=== PATIENT | female | born 1965 | race Caucasian/White ===

== ENCOUNTER 2024-05-04 08:27 | Inpatient (IN) | payer MEDICAID, SELFPAY ==
[2024-05-04] VITALS (13 sets, daily range): BP systolic 93–122; BP diastolic 46–80; PULSE 72–108; RESP 16–25; TEMP 36.4–37.6; O2SAT 88–94; BMI 32.5; BMI 31.9
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
[2024-05-04 09:49] LABS: Basophils # (Auto) 0.1 Thou/mm3 (0.0-0.2); Basophils % (Auto) 1 % (0-2.5); Eosinophils # (Auto) 0.2 Thou/mm3 (0.0-0.5); Eosinophils % (Auto) 1 % (0-10); Hematocrit 42.9 % (36.0-46.0); Hemoglobin 13.6 g/dL (12.0-16.0); Immature Granulocytes % (Auto) 1 % (0-0); Immature Granulocytes Auto 0.11 Thou/mm3 (0.00-0.00); Lymphocytes # (Auto) 2.3 Thou/mm3 (1.0-4.8); Lymphocytes % (Auto) 12 % (10-50); Mean Corpuscular HGB Conc 31.7 g/dl (31.0-37.0); Mean Corpuscular Hemoglobin 28.9 pg (25.0-35.0); Mean Corpuscular Volume 91 fL (80-100); Monocytes # (Auto) 2.2 Thou/mm3 (0.0-0.8); Monocytes % (Auto) 11 % (0-12); Neutrophils # (Auto) 14.9 Thou/mm3 (1.8-7.7); Neutrophils % (Auto) 75 % (37-80); Nucleated Red Blood Cell % 0 /100 WBC (0); Platelet Count 308 Thou/mm3 (140-440); RDW Standard Deviation 56.1 fL (36.4-46.3); White Blood Count 19.9 Thou/mm3 (3.6-11.0)
[2024-05-04] MEDS: ALBUTEROL/IPRATROPIUM (Duoneb) RT SOL 3 ML NEBU INH ×4 (09:52→22:54)
[2024-05-04 10:15] LABS: Alanine Aminotransferase 48 U/L (10-49); Albumin/Globulin Ratio 1.2 (1.2-2.2); Alkaline Phosphatase 111 U/L (46-116); Anion Gap 9 (7-16); Aspartate Amino Transferase 46 U/L (0-34); BUN/Creatinine Ratio 24 Ratio (12-20); Bilirubin,Total 0.7 mg/dL (0.3-1.2); Blood Urea Nitrogen 26 mg/dL (9-23); Calcium 8.8 mg/dL (8.3-10.6); Calcium (Corrected) 8.8 mg/dL (8.5-10.1); Carbon Dioxide 23.6 mMol/L (20.0-31.0); Chloride 105 mMol/L (98-107); Creatinine (Component) 1.1 mg/dL (0.6-1.3); Estimated Creatinine Clearance 68.4 mL/min (>60); Globulin 3.3 gm/dL (2.3-3.5); Glucose 169 mg/dL (74-106); Osmolality,Calculated 284 (275-295); Potassium 4.3 mMol/L (3.4-5.1); Sodium 138 mMol/L (136-145); Total Protein 7.3 gm/dL (5.7-8.2); eGFR 58 See Note
[2024-05-04] MEDS: predniSONE 20 MG TABLET 60 MG PO (10:15)
--- NOTE | 2024-05-04 10:52 | XR_ITS ---
Examination: AP chest single view Technique one AP portable upright chest single view Exam date and time: May 04, 2024 1103 hours Comparison September 22, 2023 INDICATIONS: Shortness of breath beginning 2 days ago. FINDINGS: Diffuse left lung pneumonia Mild enlargement cardiac contour Moderate vascular congestion mild or pneumonia right lung IMPRESSION: Bilateral pneumonia, significant left lung
[2024-05-04 11:12] LABS: Band Neutrophils (Manual) 2 % (0-6); Basophils (Manual) 1 % (0-2); Eosinophils (Manual) 4 % (0-4); Lymphocytes (Manual) 7 % (20-44); Monocytes (Manual) 8 % (2-9); Neutrophils (Manual) 78 % (50-70)
[2024-05-04] MEDS: cefTRIAXone/D5w 1gm IV premix 50 ML IV (11:14)
[2024-05-04] MEDS: AZITHROMYCIN 250 MG TABLET 500 MG PO (11:14)
[2024-05-04 12:08] LABS: Lactate (Lactic Acid) 1.5 mMol/L (0.4-2.0)
[2024-05-04 12:59] LABS: Procalcitonin 0.69 ng/ml (0.0-0.49)
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
[2024-05-04 15:20] LABS: B-Type Natriuretic Peptide 83 pg/mL (0-100)
[2024-05-04] MEDS: Vancomycin Inj 2,000 MG in SODIUM CHLORIDE 0.9% 500 ML 500 ML 150 MG IV (15:44)
[2024-05-04] MEDS: GABAPENTIN 300 MG CAPSULE 600 MG PO ×2 (15:44→21:27)
[2024-05-04] MEDS: PIPER/TAZO 3.375 GM 50 ML IV ×2 (15:45→21:27)
[2024-05-04 15:47] LABS: Glucose Estimated Average 123 mg/dL (80-131); Hemoglobin A1C 5.9 % Hgb (4.8-6.0)
--- NOTE | 2024-05-04 17:11 | PC.CC ---
Pt Briana Baeza is a 59 yr old female, admitted to hospitalist services for PNA. PRINTING PRESS MACHINE OPERATOR CC met with pt at bedside to complete initial assessment. At time of encounter pt is noted to be alert and oriented. Pt expressed understanding admission orders. Pt able to confirm demographic information. 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 Pt identifies her son Scott [phone] as surrogate DM. At baseline pt is bed bound with support to transition to wheel chair. Pt is max assist with ADLs. Pt reports prior to admission she was using PRN O2 at [facility]. In ED pt is on 2L NC. Pt is not diabetic and is not on dialysis. Pt is followed by Dr. Dill for primary care. At time of D/c pt will return to [facility]. Pt will likely need authorization to return and will likely need transport.
[2024-05-04] MEDS: HEPARIN SOD INJ 5000 UNIT/ML VIAL SC (21:26)
[2024-05-04] MEDS: SERTRALINE HCL 25 MG TABLET 125 MG PO (21:27)
[2024-05-04] MEDS: ARIPiprazole 5 MG TABLET PO (21:27)
[2024-05-05] VITALS (15 sets, daily range): BP systolic 112–142; BP diastolic 51–94; PULSE 63–86; RESP 2–21; TEMP 36.1–37.1; O2SAT 90–96; BMI 32.1
[2024-05-05 00:39] LABS: Influenza A Ag Negative; Influenza B Ag Negative; Strep A Rapid Negative (Negative)
[2024-05-05] MEDS: ALBUTEROL/IPRATROPIUM (Duoneb) RT SOL 3 ML NEBU INH ×6 (03:35→22:55)
[2024-05-05] MEDS: GABAPENTIN 300 MG CAPSULE 600 MG PO ×3 (05:07→21:18)
[2024-05-05] MEDS: LEVOTHYROXINE SODIUM 25 MCG TABLET 75 MCG PO (05:07)
[2024-05-05] MEDS: PIPER/TAZO 3.375 GM 50 ML IV (05:08)
[2024-05-05 06:01] LABS: Basophils # (Auto) 0.1 Thou/mm3 (0.0-0.2); Basophils % (Auto) 0 % (0-2.5); Eosinophils # (Auto) 0.1 Thou/mm3 (0.0-0.5); Eosinophils % (Auto) 1 % (0-10); Hematocrit 40.8 % (36.0-46.0); Hemoglobin 13.1 g/dL (12.0-16.0); Immature Granulocytes % (Auto) 1 % (0-0); Immature Granulocytes Auto 0.11 Thou/mm3 (0.00-0.00); Lymphocytes # (Auto) 3.5 Thou/mm3 (1.0-4.8); Lymphocytes % (Auto) 21 % (10-50); Mean Corpuscular HGB Conc 32.1 g/dl (31.0-37.0); Mean Corpuscular Hemoglobin 29.1 pg (25.0-35.0); Mean Corpuscular Volume 91 fL (80-100); Monocytes # (Auto) 1.9 Thou/mm3 (0.0-0.8); Monocytes % (Auto) 12 % (0-12); Neutrophils % (Auto) 66 % (37-80); Nucleated Red Blood Cell % 0 /100 WBC (0); Platelet Count 311 Thou/mm3 (140-440); RDW Standard Deviation 55.3 fL (36.4-46.3); White Blood Count 16.7 Thou/mm3 (3.6-11.0)
[2024-05-05 06:17] LABS: Partial Thromboplastin Time 31.6 Seconds (22.0-36.0)
[2024-05-05 06:55] LABS: Alanine Aminotransferase 38 U/L (10-49); Albumin, Serum 3.7 gm/dL (3.4-4.8); Albumin/Globulin Ratio 1.2 (1.2-2.2); Alkaline Phosphatase 125 U/L (46-116); Anion Gap 6 (7-16); Aspartate Amino Transferase 27 U/L (0-34); BUN/Creatinine Ratio 26 Ratio (12-20); Bilirubin,Total 0.3 mg/dL (0.3-1.2); Blood Urea Nitrogen 23 mg/dL (9-23); Calcium 8.9 mg/dL (8.3-10.6); Calcium (Corrected) 9.1 mg/dL (8.5-10.1); Carbon Dioxide 27.2 mMol/L (20.0-31.0); Chloride 108 mMol/L (98-107); Creatinine (Component) 0.9 mg/dL (0.6-1.3); Estimated Creatinine Clearance 82.9 mL/min (>60); Glucose 249 mg/dL (74-106); Magnesium 2.3 mg/dL (1.6-2.6); Osmolality,Calculated 292 (275-295); Phosphorous 1.8 mg/dL (2.4-5.1); Potassium 3.7 mMol/L (3.4-5.1); Sodium 141 mMol/L (136-145); Thyroid Stimulating Hormone 0.82 uIU/mL (0.55-4.78); Total Protein 6.7 gm/dL (5.7-8.2); eGFR > 60 See Note
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
[2024-05-05] MEDS: POT PHOS 15 mMol in NS 250 ML 15 MMOL/250 ML BAG 62.5 MMOL IV (08:41)
[2024-05-05] MEDS: predniSONE 20 MG TABLET 60 MG PO (08:41)
[2024-05-05] MEDS: HEPARIN SOD INJ 5000 UNIT/ML VIAL SC ×2 (08:42→20:27)
--- NOTE | 2024-05-05 09:24 | PC.SS ---
Follow up note: Pt is jail resident from [facility]. Pt is on IV antibiotic. Culture and sensitivity is pending. Pt will return to [facility] upon dc.
--- NOTE | 2024-05-05 09:28 | PCS.ST ---
Swallow Eval completed. Continue current diet. No dysphagia or s/s of aspiration.
[2024-05-05] MEDS: VANCOMYCIN/NS 750 MG IVPB 750 MG/150 ML BAG 120 MG IV (11:48)
[2024-05-05] MEDS: cefTRIAXone/D5w 1gm IV premix 50 ML IV (12:35)
[2024-05-05] MEDS: INSULIN LISPRO (AdmeLOG) 1 UNIT/0.01 ML UNIT SC ×3 (12:35→20:26)
[2024-05-05] MEDS: metroNIDAZOLE/NS 500 MG IVPB 500 MG/100 ML BAG 200 MG IV ×2 (13:35→21:19)
--- NOTE | 2024-05-05 15:09 | PC.SS ---
Pt is from [facility] and will return upon dc. SS has sent updated inquiry to [facility] using [employer].
[2024-05-05] MEDS: SERTRALINE HCL 25 MG TABLET 125 MG PO (20:24)
[2024-05-05] MEDS: ARIPiprazole 5 MG TABLET PO (20:24)
[2024-05-06] VITALS (10 sets, daily range): BP systolic 118–147; BP diastolic 60–71; PULSE 60–82; RESP 16–19; TEMP 35.9–37; O2SAT 92–94
[2024-05-06] MEDS: LEVOTHYROXINE SODIUM 25 MCG TABLET 75 MCG PO (05:02)
[2024-05-06] MEDS: GABAPENTIN 300 MG CAPSULE 600 MG PO ×2 (05:02→13:50)
[2024-05-06] MEDS: metroNIDAZOLE/NS 500 MG IVPB 500 MG/100 ML BAG 200 MG IV ×2 (05:04→13:51)
[2024-05-06 06:07] LABS: Basophils # (Auto) 0.1 Thou/mm3 (0.0-0.2); Basophils % (Auto) 1 % (0-2.5); Eosinophils # (Auto) 0.1 Thou/mm3 (0.0-0.5); Eosinophils % (Auto) 0 % (0-10); Hematocrit 41.6 % (36.0-46.0); Immature Granulocytes % (Auto) 2 % (0-0); Immature Granulocytes Auto 0.25 Thou/mm3 (0.00-0.00); Lymphocytes # (Auto) 4.8 Thou/mm3 (1.0-4.8); Lymphocytes % (Auto) 30 % (10-50); Mean Corpuscular HGB Conc 31.3 g/dl (31.0-37.0); Mean Corpuscular Hemoglobin 28.4 pg (25.0-35.0); Mean Corpuscular Volume 91 fL (80-100); Monocytes # (Auto) 1.8 Thou/mm3 (0.0-0.8); Monocytes % (Auto) 11 % (0-12); Neutrophils # (Auto) 9.4 Thou/mm3 (1.8-7.7); Neutrophils % (Auto) 57 % (37-80); Nucleated Red Blood Cell % 0 /100 WBC (0); Platelet Count 340 Thou/mm3 (140-440); RDW Standard Deviation 55.8 fL (36.4-46.3); Red Blood Count 4.57 Miln/mm3 (4.00-5.20); White Blood Count 16.4 Thou/mm3 (3.6-11.0)
[2024-05-06] MEDS: ALBUTEROL/IPRATROPIUM (Duoneb) RT SOL 3 ML NEBU INH ×3 (06:43→14:31)
[2024-05-06 06:49] LABS: Alanine Aminotransferase 32 U/L (10-49); Albumin, Serum 3.9 gm/dL (3.4-4.8); Albumin/Globulin Ratio 1.3 (1.2-2.2); Alkaline Phosphatase 120 U/L (46-116); Anion Gap 6 (7-16); Aspartate Amino Transferase 21 U/L (0-34); BUN/Creatinine Ratio 19 Ratio (12-20); Bilirubin,Total 0.2 mg/dL (0.3-1.2); Blood Urea Nitrogen 15 mg/dL (9-23); Calcium 9.1 mg/dL (8.3-10.6); Calcium (Corrected) 9.2 mg/dL (8.5-10.1); Carbon Dioxide 27.5 mMol/L (20.0-31.0); Chloride 108 mMol/L (98-107); Creatinine (Component) 0.8 mg/dL (0.6-1.3); Estimated Creatinine Clearance 91.6 mL/min (>60); Globulin 3.1 gm/dL (2.3-3.5); Glucose 128 mg/dL (74-106); Magnesium 2.5 mg/dL (1.6-2.6); Osmolality,Calculated 284 (275-295); Potassium 3.8 mMol/L (3.4-5.1); Sodium 141 mMol/L (136-145); eGFR > 60 See Note
[2024-05-06] MEDS: HEPARIN SOD INJ 5000 UNIT/ML VIAL SC (08:26)
[2024-05-06] MEDS: predniSONE 20 MG TABLET 40 MG PO (08:26)
[2024-05-06] MEDS: cefTRIAXone/D5w 1gm IV premix 50 ML IV (08:26)
[2024-05-06] MEDS: INSULIN LISPRO (AdmeLOG) 1 UNIT/0.01 ML UNIT SC (12:39)
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
--- NOTE | 2024-05-06 16:09 | PC.SS ---
has setup gurney transportation with Soila from [employer] [phone] for 6pm to [facility]. Pt is requiring 2 liters of O2. has requested [facility]. Ref# [id number]. has sent patient's facesheet and ambulance form to [facility] using [employer]. has called Columba at [facility] who will place pt on will call list until they have been contacted by [facility]. has provided Soila from [facility] and Columba with [facility] with nurses station's phone#. Bedside nurseTess is aware. Fely PIRES is aware. Giovana at [facility] is aware. Pt refused for to contact family (son) to inform him regarding pt returning to [facility] and bedside nurseTess was present.
== END 2024-05-06 18:02 | disposition skilled nursing facility (03) | DRG 137 ==
LOC: SERX 12:03 → SERHOLD 14:28 → S3NX 19:46
PROVIDERS: Student in an Organized Health Care Education/Training Program; Admitting Provider Internal Medicine; Emergency Provider Student in an Organized Health Care Education/Training Program; PCP Hospitalist; Visit Provider Student in an Organized Health Care Education/Training Program
DX: J69.0 Pneumonitis due to inhalation of food and vomit (principal); G81.94 Hemiplegia, unspecified affecting left nondominant side; J44.1 Chronic obstructive pulmonary disease with (acute) exacerbation; I10 Essential (primary) hypertension; J96.01 Acute respiratory failure with hypoxia; E03.9 Hypothyroidism, unspecified; F31.9 Bipolar disorder, unspecified; F25.9 Schizoaffective disorder, unspecified; E78.5 Hyperlipidemia, unspecified; L89.152 Pressure ulcer of sacral region, stage 2; F17.210 Nicotine dependence, cigarettes, uncomplicated; R73.9 Hyperglycemia, unspecified; M48.00 Spinal stenosis, site unspecified; T38.0X5A Adverse effect of glucocorticoids and synthetic analogues, initial encounter; Z74.01 Bed confinement status; Z79.899 Other long term (current) drug therapy; Z79.890 Hormone replacement therapy; Z79.51 Long term (current) use of inhaled steroids; S06.9XAS Unspecified intracranial injury with loss of consciousness status unknown, sequela; V89.2XXS Person injured in unspecified motor-vehicle accident, traffic, sequela; Y92.230 Patient room in hospital as the place of occurrence of the external cause
CPT/HCPCS: 36415; 71045; 80053; 82803; 83036; 83605; 83735; 83880; 84100; 84145; 84443; 85025; 85610; 85730; 87040; 87077; 87081; 87186; 87205; 87502; 87651; 87811; 92610; 93225; 94640; 94667; 94762; 96365; 96367; 99291; A9270; J0696; J1643; J1815; J2543; J3370; J3371; J3490; J7040; J7512; J7999; J1644; J1836